=== PATIENT | female | born 1965 | race Caucasian/White ===

== ENCOUNTER 2017-01-03 10:28 | Inpatient (IN) | payer OTHER ==
[~2017-01-03] VITALS: Ht 177.8 cm; Wt 76.9 kg
[2017-01-05] MEDS ORDERED: CLARITIN10 MG PO (12:27)
[2017-01-05] MEDS ORDERED: NEURONTIN400 MG PO (12:27)
[2017-01-05] MEDS ORDERED: OMEPRAZOLE40 MG PO (12:27)
[2017-01-05] MEDS ORDERED: ZESTRIL10 MG PO (12:27)
[2017-01-05] MEDS ORDERED: TRAZODONE HCL50 MG PO (12:28)
[2017-01-05] MEDS ORDERED: IMITREX50 MG PO (12:28)
[2017-01-05] MEDS ORDERED: CYCLOBENZAPRINE10 MG PO (12:28)
[2017-01-05] MEDS ORDERED: B-121000 MCG PO (12:29)
[2017-01-05] MEDS ORDERED: POLYETHYLENE GL17 GM PO (12:30)
[2017-01-05] MEDS ORDERED: LIDOPATCH1 EACH TOP (12:31)
[2017-01-05] MEDS ORDERED: CULTURELLE1 EACH PO (12:32)
[2017-01-05] MEDS ORDERED: PHENERGAN25 M1 PO (12:32)
[2017-01-05] MEDS ORDERED: VENTOLIN HFA8 GM IH (12:32)
[2017-01-05] MEDS ORDERED: FLAGYL500 MG PO (12:33)
[2017-01-05] MEDS ORDERED: CIPRO500 MG PO (12:33)
== END 2017-01-05 11:11 | disposition home or self-care (01) | DRG 392 ==
LOC: ER 10:28 → MED 16:55
PROVIDERS: ADMIT Internal Medicine
DX: A09 Infectious gastroenteritis and colitis, unspecified (principal); R11.2 Nausea with vomiting, unspecified; R19.09 Other intra-abdominal and pelvic swelling, mass and lump; E87.6 Hypokalemia; E83.42 Hypomagnesemia; K21.9 Gastro-esophageal reflux disease without esophagitis; F17.210 Nicotine dependence, cigarettes, uncomplicated; G62.9 Polyneuropathy, unspecified; J44.9 Chronic obstructive pulmonary disease, unspecified; J45.909 Unspecified asthma, uncomplicated; Z88.8 Allergy status to other drugs, medicaments and biological substances; Z79.899 Other long term (current) drug therapy; Z90.710 Acquired absence of both cervix and uterus; Z90.49 Acquired absence of other specified parts of digestive tract; Z80.1 Family history of malignant neoplasm of trachea, bronchus and lung; Z80.3 Family history of malignant neoplasm of breast; Z80.8 Family history of malignant neoplasm of other organs or systems; Z82.49 Family history of ischemic heart disease and other diseases of the circulatory system
CPT/HCPCS: 36415; 72072; J0696; J1650; Q9967

== ENCOUNTER 2017-03-20 15:52 | Emergency (ER) | payer OTHER ==
[~2017-03-20 15:52] MED LIST: B-121000 MCG PO; CIPRO500 MG PO; CLARITIN10 MG PO; CULTURELLE1 EACH PO; CYCLOBENZAPRINE10 MG PO; FLAGYL500 MG PO; IMITREX50 MG PO; LIDOPATCH1 EACH TOP; NEURONTIN400 MG PO; OMEPRAZOLE40 MG PO; PHENERGAN25 M1 PO; POLYETHYLENE GL17 GM PO; TRAZODONE HCL50 MG PO; VENTOLIN HFA8 GM IH; ZESTRIL10 MG PO
== END 2017-03-20 22:48 | disposition short-term general hospital (02) ==
LOC: ER 15:52
DX: T81.4XXA Infection following a procedure, initial encounter (principal); L02.211 Cutaneous abscess of abdominal wall; F17.200 Nicotine dependence, unspecified, uncomplicated; Z79.899 Other long term (current) drug therapy; Z88.6 Allergy status to analgesic agent; Z88.8 Allergy status to other drugs, medicaments and biological substances
CPT/HCPCS: 36415; 96374; 96375; 96376; Q9967